=== PATIENT | male | born 1960 | race Caucasian/White ===

== ENCOUNTER → 2017-02-23 | Outpatient (CLI) | payer BC | END | disposition home or self-care (01) | LOC: GMAB 10:34 | PROVIDERS: ATTEND Family Medicine | DX: Z00.01 Encounter for general adult medical examination with abnormal findings (principal) ==

== ENCOUNTER → 2017-12-27 | Outpatient (CLI) | payer OTHER ==
--- NOTE | 2017-12-27 16:53 | MRI ---
EXAM DESCRIPTION: Lumbar Spine w/o Contrast : Magnetic Resonance Imaging. CLINICAL HISTORY: SCIATICA/LBP COMPARISON: None. TECHNIQUE: Multiplanar, multiple standard sequences, non contrast MRI, lumbar spine. FINDINGS: L3-4: Moderate disc space loss and disc desiccation. Minimal anterior bulging. Posterior broad-based 8 mm protrusion impressing on the thecal sac, more on the left, and extending slightly below the disc space effacing the bilateral subarticular recesses more on the left and encroaching on the descending bilateral L4 nerve roots. Severe canal stenosis, more on the left. Disc bulge also into the left foramen which is moderately narrowed and mild narrowing of the right foramen. L2-3: Disc desiccation posterior broad-based disc bulge more to the right of midline than the left. Bilateral flavum ligament hypertrophy and facet arthrosis impressing on the posterior thecal sac. AP canal diameter 9 mm. Mild bilateral foraminal narrowing. L4-5: Disc desiccation minimal anterior bulging. Right side Modic type II endplate reactive changes. Disc spur complex encroaching on the left foramen with moderate narrowing. Posterior flavum ligament hypertrophy and bilateral facet arthrosis. AP canal diameter 10 mm. Mild narrowing right foramen. L5-S1: Marked disc space loss with Modic type III endplate reactive changes. Minimal posterior endplate spurs abutting the thecal sac and the descending right S1 nerve. Mild canal narrowing. Bilateral mild foraminal narrowing more on the left. Narrowing of the bilateral facet joints are partially fused. L1-2: Minimal disc desiccation. Trace bulging midline. Posterior elements unremarkable. Canal and foramina are patent. T12-L1: Disc space preserved with normal signal in the disc. Posterior elements are unremarkable. Canal and foramina are patent. Conus terminates at this level. No scoliosis. Normal lordosis. Paravertebral soft tissues unremarkable.. Decreased fatty marrow signal in the spine. No marrow edema elsewhere in the vertebral bodies and the posterior elements. Vertebral bodies are not compressed at any level. IMPRESSION: 1. Posterior broad-based herniation of the L3-4 disc more to the left than the right. Severe canal stenosis and possible bilateral subarticular recess stenosis more on the left than the right. Probable impingement bilateral L4 nerves. Disc also bulges laterally abutting the exiting left L3 nerve in the foramen. 2. Multifactorial mild central canal stenosis at L2-3. 3. Multifactorial borderline mild canal stenosis L4-5. Left side disc spur complex causing moderate narrowing of the foramen. 4. Marked disc space loss L5-S1 with advanced spondylosis and minimal residual disc. Bilateral facet joints appear to be partially fused. Electronically signed by: Maxim Steele MD 12/27/2017 4:52 PM CDT
== END ==
LOC: MRI 11:07
PROVIDERS: ATTEND Orthopaedic Surgery
DX: M54.40 Lumbago with sciatica, unspecified side (principal); M51.26 Other intervertebral disc displacement, lumbar region; M48.061 Spinal stenosis, lumbar region without neurogenic claudication

== ENCOUNTER → 2018-02-09 | Outpatient (CLI) | payer BC | LOC: GMAL 14:50 | PROVIDERS: ATTEND Family Medicine | DX: Z01.810 Encounter for preprocedural cardiovascular examination (principal); R30.0 Dysuria ==